=== PATIENT | male | born 1945 | race Caucasian/White ===

== ENCOUNTER 2016-06-26 09:29 | Day surgery (SDC) | payer MEDICARE ==
--- NOTE | 2016-06-25 09:43 | HP ---
DATE OF CLINIC; 06/19/2016 ENRIQUE PAT : 1945 PLANNED PROCEDURE: Right Carpal Tunnel Release DATE OF SURGERY: June 26, 2016 SURGEON: Leonard Hendricks M.D. HISTORY OF PRESENT ILLNESS Enrique Pat is a 71 year old male. * Medication list reviewed with patient allergy list reviewed with patient. This is a 71-year-old right dominant gentleman who comes in with complaints of long-standing and increasing right-hand pain, numbness and tingling on the radial side as well as some weakness and loss of dexterity in the hand. He has some concomitant complaints of neck and shoulder pain. He has had nerve conduction studies and is interested in pursuing treatment for this hand problem. He rates his pain today only a 3-4/10 and states that the numbness and tingling is the biggest problem for him. After discussion and review of treatment options, both operative and non-operative, he has elected to proceed with surgery and presents today preoperatively. PAST MEDICAL AND SURGICAL HISTORY: His past medical and surgical history are unchanged from his previous visits. CURRENT MEDICATION * Aspir-81 81 MG Tablet Delayed Release 1 once a day 0 days, 0 refills * Bacitracin Zinc Powder U as needed on fistula, 0 days, 0 refills * Carvedilol 6.25 MG Tablet as directed 0 days, 0 refills * [facility] Loratadine 10 MG Tablet U 1-2 tabs a day, 0 days, 0 refills * [facility] Magnesium 250 MG Tablet as directed 0 days, 0 refills * [facility] Vitamin C 1000 MG Tablet as directed 0 days, 0 refills * [facility] Zinc 50 MG Tablet 1 once a day 0 days, 0 refills * Docusate Sodium 100 MG Capsule 1 once a day 0 days, 0 refills * DULoxetine HCl 30 MG Capsule Delayed Release Particles U: 2 tabs at 8AM, 0 days, 0 refills * EQL Vitamin D3 2000 UNIT Capsule 1 twice a day 0 days, 0 refills * Furosemide 40 MG Tablet as directed 0 days, 0 refills * [facility] Famotidine 20 MG Tablet as directed 0 days, 0 refills * HM Vitamin B12 1000 MCG Tablet Extended Release as directed 0 days, 0 refills * HumaLOG 100 UNIT/ML Solution U: 9 units 3x a day with meals & 22 units 2x a day am and pm, 0 days, 0 refills * Medihoney Wound/Burn Dressing Pad U: as needed for fistulas, 0 days, 0 refills * Mesalamine 800 MG Tablet Delayed Release as directed 0 days, 0 refills * MetFORMIN HCl 500 MG Tablet 1 once a day 0 days, 0 refills * MetroNIDAZOLE 500 MG Tablet as directed 0 days, 0 refills * Naproxen 500 MG Tablet 1 twice a day 0 days, 0 refills * NovoLOG 100 UNIT/ML Solution as directed 0 days, 0 refills * [place] 3 500 500 MG Capsule U: 3 AM and PM, 0 days, 0 refills * Polyethylene Glycol 3350 Powder U with water as needed, 0 days, 0 refills * Remicade 100 MG Solution Reconstituted as directed RA Med - recieves infusions, 0 days, 0 refills * Simvastatin 80 MG Tablet as directed 0 days, 0 refills * Tamsulosin HCl 0.4 MG Capsule 1 once a day bedtime, 0 days, 0 refills * Vision Formula/Lutein Tablet as directed 0 days, 0 refills PAST MEDICAL/SURGICAL HISTORY Reported: Shoulder Arthroscopy Right shoulder by at [facility] 2006?. Medical: Cardiac history, Diabetes Mellitus, Stroke, and Anemia. Surgical / Procedural: Prior surgery anal fistulas x5 and Cardiac surgery pacemaker. SOCIAL HISTORY Behavioral: Quit smoking 2004. Smoking status: Former smoker. 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 ALLERGIES * Codeine Derivatives Reaction: pt just dont like not really an allergy * Methocarbamol Reaction: pt just dont like not really an allergy FAMILY HISTORY Family medical history father- HTN, Heart disease REVIEW OF SYSTEMS No recent constitutional symptoms to include fevers and chills. No recent cardiovascular symptoms to include chest pain or palpitations. No recent respiratory symptoms to include shortness of breath or recent infections. 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 PHYSICAL FINDINGS * Vitals taken 06/19/2016 10:16 am BP-Sitting L 126/71 mmHg BP Cuff Size Regular Pulse Rate-Sitting 92 bpm Temp-Oral 97.6 F Height 67 in Weight 182 lbs 3.2 oz Body Mass Index 28.5 kg/m2 Body Surface Area 1.94 m2 Pain Level 8 Ears, Nose, Throat: * ENT: normal. Lungs: * Clear to auscultation. Cardiovascular: Heart Rate and Rhythm: * Normal. Abdomen: * Normal. Neurological: Motor: * Dominant Hand = Right Hand. Patient is a somewhat elderly appearing gentleman who is awake, alert and conversant throughout the encounter. He is in no acute distress. CARDIOVASCULAR: Intact peripheral pulses on bilateral upper extremities. No significant edema on inspection of bilateral upper extremities. NEUROLOGIC: Patient had intact coordinated composite motion of the bilateral upper extremities and sensation intact to light touch in all distributions of bilateral upper extremities. PSYCHIATRIC: Patient was oriented to person, place and time and displayed appropriate mood and affect during the encounter. SKIN: Exam of the skin on bilateral upper extremities showed no significant scars, lesions, rashes or masses. FOCUSED MUSCULOSKELETAL EXAM: The patient has a normal resting station of the shoulders, elbows, wrists. His right hand shows some slight wasting in the thenar eminence. He has diminished sensation in the radial 3.5 digits. He has weakness of thumb abduction. He has a warm and well perfused hand. He has positive Phalen's, positive Tinel's, positive flexion compression test. [place] test shows codominant flow. IMAGING: Right wrist films shows some mild radiocarpal arthritis, but no fractures, dislocations and no evidence of any bony pathology in the anterior portion of his wrist. He does have some vascular calcifications noted. ASSESSMENT A 71-year-old gentleman with nerve conduction studies and physical exam consistent with right carpal tunnel syndrome. THERAPY * Patient fall risk screen positive. * Patient eligible for fall risk assessment. * Patient received fall risk assessment. PLAN * Carpal tunnel syndrome, right upper limb Percocet 5-325 MG TABS, Take 1-2 tablets every 4 hours as needed for pain, 14 days, 0 refills * OTHER RA- Medication Remicade- Pt was scheduled 06/25/16 for infusion at [facility] - He will reschedule appt until at least 2wks post op or until seen by provider.- Follow-up call was made after his appt today. Madi Tran MA * Decompression of median nerve at carpal tunnel -right CARE TEAM Need To Load Need to Load Ph.D.Medical Genetics [facility] SURGICAL CONSENT We have discussed surgical options including right CTR and non-operative management. The patient was counseled in detail regarding the diagnosis, treatment options available, prognosis of each treatment option and the potential risks and complications. The risks of surgery include, but are not limited to, anesthetic , neurovascular complications, pulmonary embolism, deep vein thrombosis, wound dehiscence, failure of any or all of the discussed procedures, infection of the joint or surrounding soft tissue, need for revision surgery, chronic pain, limitations in activities of daily living, inability to return to work, and loss of normal range of motion or functional use of the extremity. There is the possibility of failure over time that may require additional operative or non-operative treatment. The patient acknowledged that there are a number of perioperative risks not mentioned here and would still like to proceed. The patient is aware of and understands these risks, and wishes to proceed with the proposed surgical procedure and other procedures as indicated at the time of surgery. We will have the patient see their PCP for a preoperative medical risk assessment. The preoperative instructions were reviewed with the patient and all questions were answered. PB/sg
[~2016-06-26 09:29] MED LIST: DEXAMETHASONE SOD PHOS 4 MG/1 ML VIAL ONE; LIDOCAINE 2% (MULTI DOSE) 10 ML VIAL ONE; ONDANSETRON 4 MG/2ML 2 ML VIAL ONE; PROPOFOL 20 ML IV ONE
[2016-06-26] MEDS ORDERED: CEFAZOLIN SODIUM 2 GRAM PREMIX 100 ML IV PRN (09:30)
[2016-06-26] MEDS ORDERED: MIDAZOLAM HCL 1 MG/ML 2ML VIAL ONE (09:34)
[2016-06-26] MEDS ORDERED: FENTANYL 100 MCG/2 ML VIAL ONE (09:34)
[2016-06-26] MEDS ORDERED: LIDOCAINE 0.5% (PRES FREE) 50 ML VIAL ONE (09:38)
[2016-06-26] MEDS ORDERED: SODIUM CHLORIDE 0.9% 1,000 ML ONE (09:39)
[2016-06-26] MEDS ORDERED: CEFAZOLIN SODIUM 2 GRAM PREMIX 100 ML IV ONE (09:40)
[2016-06-26] MEDS ORDERED: IV START KIT ONE ×2 (09:40→10:11)
[2016-06-26] MEDS ORDERED: SODIUM CHLORIDE 0.9% FLUSH 10 ML ONE (10:00)
--- NOTE | 2016-06-26 11:39 | PCMBPN ---
Brief Post Op Note: Date of Procedure: 06/26/16 Start Time: 1120 Preoperative Diagnosis: 1. right carpal tunnel syndrome Postoperative Diagnosis: 1. same Procedure: right open carpal tunnel release Surgeon: Leonard Hendricks MD Assist: none Anesthesia: Ladan Huang Findings: as above Condition: stable to SDS Complications: none IV Fluids: 600 mLs of LR Urine Output: 0 mLs Estimated Blood Loss: 2 mLs Tourniquet Time: 30 min (Renaldo block) Specimens: none Implants: none Drains: none Leonard Hendricks MD
[2016-06-26] MEDS ORDERED: ONDANSETRON 4 MG/2ML 2 ML VIAL IV PRN (11:56)
[2016-06-26] MEDS ORDERED: OXYCODONE/ACETAMINOPHEN 5/325 MG TABLET PO PRN (11:56)
[2016-06-26] MEDS ORDERED: ACETAMINOPHEN 325 MG TABLET PO PRN (11:56)
[2016-06-26] MEDS ORDERED: LACTATED RINGERS 1,000 ML IV SCH (11:56)
[2016-06-26] MEDS ORDERED: DIPHENHYDRAMINE HCL 50 MG/1 ML VIAL IV PRN (11:56)
[2016-06-26] MEDS ORDERED: HYDROMORPHONE HCL 1 MG/ML SYRINGE IV PRN (11:56)
--- NOTE | 2016-06-26 15:13 | OP ---
Enrique CALLOWAY : 1945 [id number] DATE OF SERVICE: June 26, 2016 PREOPERATIVE DIAGNOSIS: Right carpal tunnel syndrome. POSTOPERATIVE DIAGNOSIS: Right carpal tunnel syndrome. PROCEDURE PERFORMED: RIGHT CARPAL TUNNEL RELEASE. SURGEON: Leonard Hendricks M.D. CLINICAL INFORMATICS STRATEGIST: None. ANESTHESIA: An DotyNMitchell SPECIMENS: No material was sent to the laboratory. ESTIMATED BLOOD LOSS: 2 mL FLUIDS REPLACED: 600 mL of crystalloid. TOURNIQUET TIME: 30 minutes at 250 mmHg. IMPLANTS: None. DRAINS: None. INDICATIONS: This is a 71-year-old right hand dominant patient with history, physical exam and neurodiagnostic findings of right carpal tunnel syndrome, which has failed to be relieved by nonoperative measures. Risks, benefits and alternatives of an open carpal tunnel release were discussed with the patient and they elected to proceed with surgery. Informed consent was obtained and documented in the chart and the patient was placed on the schedule the first available convenience. DESCRIPTION OF PROCEDURE: The patient was identified in the pre-operative holding area where they were marked with an indelible marker by the operating surgeon. The patient was taken to the operating room where they were placed in the supine position on the operating room table. A [place] block anesthetic was administered by the anesthesia provider. The patient was prepped and draped in the usual sterile fashion for surgery and received perioperative antibiotics prior to the inflation of the tourniquet. A final operative time out was performed and confirmed by all members of the operative team and a longitudinal incision was made on the patient's hand just 6 mm ulnar to the thenar flexion crease. Dissection was carried down identifying transverse fibers of the transverse carpal ligament. This was sharply divided at its proximal extent and the median nerve was visualized. A [place] elevator was passed into the carpal tunnel to protect the nerve while the remainder of the transverse carpal ligament was sharply divided. This was carried distally until we encountered the perivascular fat of the vascular arches. The tenotomy scissors were passed both superficial and deep to the distal volar forearm fascia proximally and no transligamentous branches of the nerve were identified. Under direct visualization a push cut technique was used to divide the proximal portion of the transverse carpal ligament and the distal volar forearm fascia. At this point we felt that we had achieved an adequate release of the patient's nerves so the wound was copiously irrigated with sterile saline and closed with horizontal mattress sutures of #4-0 Nylon. A sterile dressing of Xeroform, fluffs, web roll and an CONTRERAS bandage was applied. The tourniquet was deflated, the drapes were removed. The patient was transferred to a stretcher and taken postoperatively to the same day surgery unit in stable condition. There were no observed intraoperative complications during this procedure. Job [id number] Cc: [facility]
== END 2016-06-26 13:41 | disposition home or self-care (01) ==
LOC: SDC 09:29
PROVIDERS: ATTEND Orthopaedic Surgery
PROC: 01N50ZZ Release Median Nerve, Open Approach (ICD-10-PCS; principal; 2016-06-26)
DX: G56.01 Carpal tunnel syndrome, right upper limb (principal); Z87.891 Personal history of nicotine dependence; Z79.82 Long term (current) use of aspirin; Z79.84 Long term (current) use of oral hypoglycemic drugs; E11.9 Type 2 diabetes mellitus without complications; Z86.73 Personal history of transient ischemic attack (TIA), and cerebral infarction without residual deficits
CPT/HCPCS: 64721; J3010; J1100; J2250; J2001 ×2; J2405; J7030; J0690